=== PATIENT | male | born 1940 | race Caucasian/White ===

== ENCOUNTER 2020-09-29 14:24 | Emergency (ER) | payer OTHER, SELFPAY ==
[2020-09-29] VITALS (51 sets, daily range): BP systolic 149–195; BP diastolic 69–113; PULSE 57–85; RESP 12–24; TEMP 36.7; O2SAT 92–100
--- NOTE | 2020-09-29 14:15 | RT.EKG_ITS ---
APPROVED REPORT Exam: Resting ECG Reason for Exam: dizziness, high b/p Patient Location: E HR:74 bpm ECG Measurements Heart Rate 74 AXIS SD 176 P 46 QRSd 99 QRS 38 QT 387 T 43 QTc 432 Conclusion Sinus rhythm...normal P axis, V-rate 60- 99. No STEMI. I have reviewed and interpreted ECG and agree with software generated interpretation.
--- NOTE | 2020-09-29 14:31 | W.ED.GENAD ---
Discharge Plan Disposition Patient Disposition: HOME Condition: Improving Discharge Details Clinical Impression: Dizziness, Hypertension Primary Care Provider: Yosef Ramirez ED Provider: Arabella Riojas Home Meds and New Rx's Prescriptions: New amlodipine 5 mg tablet 5 mg PO DAILY Qty: 30 RF: 0 Continued atorvastatin 40 MG tablet 40 mg PO DAILY RF: 0 nitroglycerin [Nitrostat] 0.4 MG tablet, sublingual 0.4 mg Sublingual PRN RF: 0 aspirin [Aspirin Low-Strength] 81 MG tablet,chewable 81 mg PO DAILY RF: 0 Discontinued metoprolol succinate 50 MG tablet extended release 24 hr 50 mg PO DAILY RF: 0 metoprolol succinate 100 MG tablet extended release 24 hr 100 mg PO DAILY RF: 0 Discharge Instructions Instructions: Hypertension (ED), Dizziness (ED) Additional Instructions: Start taking the amlodipine as directed. Drink plenty of fluids and get plenty of rest. Check your blood pressure regularly. Call your primary care doctor tomorrow to schedule a follow-up appointment for reevaluation and for continued blood pressure management. Return immediately to the emergency department if you develop any worsening or new concerning symptoms. Discharge Data Discharge Physician: Arabella Riojas Medical Decision Making 80-year-old male with a history of hypertension, coronary artery disease, hypercholesterolemia, CABG presents with lightheadedness that started upon standing earlier this morning and has been intermittent since then. He denies chest pain. EKG notes a rate of 74, sinus, no STEMI, nondiagnostic. Blood pressure on arrival 166/106. Patient appears comfortable and on top. No focal deficits on exam. History and presentation does not appear consistent with acute CVA, subarachnoid hemorrhage, ACS. Considering patient's age and history, will obtain screening labs, CTA head and neck, chest x-ray. Will give 1 dose of amlodipine p.o. and IV fluids and reassess. Labs and imaging reviewed and unremarkable. Normal white blood cell count. Troponin negative. CTA head and neck and chest x-ray negative. Patient reassessed and he complained of some dizziness. Will give additional fluids with something to eat and reassess. Patient reassessed and he feels much better and is requesting to go home. Blood pressure continued to fluctuate at times but has been as low as 149/83. A prescription for amlodipine was sent electronically to his pharmacy. He is advised to call his primary care doctor tomorrow for follow-up and continued blood pressure management. Usual and customary return precautions given prior to discharge. Medical Records Medical records reviewed: Yes I reviewed the patient's medical records. Imaging Data Radiologic Study: Radiologist's impression: CT Angiography Head With Contrast, Arteriography Exam date and time: 09/29/2020 3:30 PM Age: 80 years old Clinical indication: Other: Headache, dizziness, high BP, R/O acute CVA, mass TECHNIQUE: Imaging protocol: Computed tomography angiography of the head with contrast. Exam focused on the arteries. 3D rendering (Not supervised by radiologist): MIP and/or 3D reconstructed images were created by the technologist. Radiation optimization: All CT scans at this facility use at least one of these dose optimization techniques: automated exposure control; mA and/or kV adjustment per patient size (includes targeted exams where dose is matched to clinical indication); or iterative reconstruction. Contrast material: OMNIPAQUE 350; Contrast volume: 85 ml; Contrast route: INTRAVENOUS (IV); COMPARISON: No relevant prior studies available. FINDINGS: ANTERIOR CIRCULATION: Right internal carotid artery: Intracranial atherosclerosis at the right carotid siphon. No significant stenosis or occlusion. Right middle cerebral artery: No flow-limiting stenosis or occlusion. 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 Otherwise, no flow-limiting stenosis or occlusion. Left internal carotid artery: Intracranial atherosclerosis at the left carotid siphon. No significant stenosis or occlusion. Left middle cerebral artery: No flow-limiting stenosis or occlusion. Left anterior cerebral artery: No flow-limiting stenosis or occlusion. POSTERIOR CIRCULATION: Right vertebral artery: Right dominant vertebral artery. No flow-limiting stenosis or occlusion. Left vertebral artery: No flow-limiting stenosis or occlusion. Basilar artery: No flow-limiting stenosis or occlusion. Right posterior cerebral artery: No flow-limiting stenosis or occlusion. Left posterior cerebral artery: No flow-limiting stenosis or occlusion. Brain: No acute large territorial infarction or intracranial hemorrhage. Mild parenchymal volume loss and nonspecific white matter hypodensity, likely chronic microangiopathy. No mass effect or midline shift. Intracranial atherosclerosis. Cerebral ventricles: No hydrocephalus. Bones/joints: No acute fracture. Soft tissues: Unremarkable. Dental: Partial bilateral maxillary sinus mucosal opacification with periapical lucency of the bilateral maxillary molars. IMPRESSION: No acute intracranial abnormality. Patency of the major proximal intracranial vessels. Intracranial arteriosclerosis. CT Angiography Neck With Contrast Exam date and time: 09/29/2020 3:30 PM Age: 80 years old Clinical indication: Other: Headache, dizziness, high BP, R/O acute CVA, mass TECHNIQUE: Imaging protocol: Computed tomography angiography of the neck with contrast. 3D rendering (Not supervised by radiologist): MIP and/or 3D reconstructed images were created by the technologist. Radiation optimization: All CT scans at this facility use at least one of these dose optimization techniques: automated exposure control; mA and/or kV adjustment per patient size (includes targeted exams where dose is matched to clinical indication); or iterative reconstruction. Contrast material: OMNIPAQUE 350; Contrast volume: 85 ml; Contrast route: INTRAVENOUS (IV); COMPARISON: No relevant prior studies available. FINDINGS: Right common carotid artery: No stenosis. No dissection or occlusion. Right internal carotid artery: Atherosclerotic disease, without significant proximal right internal carotid artery stenosis by NASCET criteria. Right external carotid artery: No occlusion or stenosis of the origin. Left common carotid artery: The left common carotid artery incidentally arises from the right brachiocephalic artery. No flow-limiting stenosis or occlusion. Left internal carotid artery: Atherosclerotic disease, without significant proximal left internal carotid artery stenosis by NASCET criteria. Left external carotid artery: No occlusion or stenosis of the origin. Right vertebral artery: No stenosis. No dissection or occlusion. Left vertebral artery: No stenosis. No dissection or occlusion. Aorta: Noncalcified plaque at the aortic arch and origin of the right brachiocephalic artery. Thyroid: Incidental hypodense left thyroid nodule measuring to 9 mm. No additional follow-up is recommended per imaging guidelines. Soft tissues: No significant soft tissue swelling. Bones/joints: Median sternotomy wires. Degenerative changes of the thoracic spine. No acute osseous abnormality. 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 Lungs: Biapical pleuroparenchymal scarring. IMPRESSION: Atherosclerotic disease. No flow-limiting stenosis or occlusion. Lab Data Lab results reviewed: Yes I reviewed the patient's lab results. Labs: Laboratory Tests Range/Units 09/29/20 09/29/20 14:58 14:58 WBC (4.4-10.8) 10^3/uL 8.66 RBC (4.36-5.78) 10^6/uL 5.02 Hgb (13.5-17.5) g/dL 15.5 Hct (40.0-50.0) % 47.8 MCV (80-95) fL 95.2 H MCH (27.0-33.0) pg 30.9 MCHC (32.0-36.0) % 32.4 RDW (11.8-14.1) % 12.7 Plt Count (130-400) 10^3/uL 194 MPV (8.0-11.0) fL 9.6 Immature Gran % 0.2 Neutrophils % 54.6 Lymphocytes % 30.4 Monocytes % 12.4 Eosinophils % 1.8 Basophils % 0.6 Nucleated RBC % % 0 Absolute Neutrophils (1.2-6.7) 10^3/uL 4.73 Absolute Lymphocytes (1.2-3.4) 10^3/uL 2.63 Absolute Monocytes (0.1-0.8) 10^3/uL 1.07 H Absolute Eosinophils (0.0-0.7) 10^3/uL 0.16 Absolute Basophils (0.0-0.2) 10^3/uL 0.05 Sodium (136-145) mmol/L 143 Potassium (3.5-5.1) mmol/L 4.1 Chloride (98-107) mmol/L 108 H Carbon Dioxide (21.0-32.0) mmol/L 26.2 Anion Gap (3-11) mmol/L 8.8 BUN (7-18) mg/dL 19 H Creatinine (0.70-1.30) mg/dL 1.3 Estimated GFR/1.73 m2 (mL/min/1.73m2) 53.39 Glucose (74-106) mg/dL 110 H Calcium (8.5-10.1) mg/dL 8.9 Magnesium (1.8-2.4) mg/dL 2.2 Total Bilirubin (0.2-1.0) mg/dL 0.4 AST (15-37) U/L 15 ALT (16-63) U/L 28 Alkaline Phosphatase (46-116) U/L 108 Troponin I (<0.06) ng/mL < 0.05 Total Protein (6.4-8.2) g/dL 7.9 Albumin (3.4-5.0) g/dL 3.4 ECG Data Attestation: I personally reviewed and interpreted this ECG (s) as follows: Interpretation: Rate of 74, sinus, no acute ST elevation or depression. AR 176. QTc 432. HPI General Mode of arrival: ambulatory. Date/Time Provider Initiated Documentation: 09/29/20 14:26. Limitations to Documentation: no limitations. Information obtained by: patient. HPI Narrative: Patient is a 80-year-old male who presents with a complaint of dizziness since 3 AM this morning. Patient states he awoke to use the bathroom in the middle of the night and felt a lightheadedness sensation. He states he has felt intermittent dizziness since then. He denies any spinning sensation. He states he checked his blood pressure at home and it was 193/109 at its highest today. He also admits to a mild diffuse headache earlier today but denies any at present. He denies any blurry vision, chest pain, shortness breath, abdominal pain, nausea, vomiting, diarrhea or urinary symptoms. Patient states he made the decision to stop all of his blood pressure medications 1 month ago. He states he had discussed it with his primary care doctor Dr. Ramirez as he felt that most of his medications caused side effects and he decided he would rather change his diet and exercise. Patient states he had a reaction of mood change and dizziness with clonidine, a cough with lisinopril and a headache with hydrochlorothiazide. He states he did not have any side effect with metoprolol but states he was on 200 mg daily without any response in his blood pressure. Related Data Home Medications Medication Instructions Recorded Confirmed aspirin [Aspirin Low-Strength] 81 mg PO DAILY tab-cap 06/21/12 05/03/16 atorvastatin 40 mg PO DAILY tab-cap 06/21/12 05/03/16 nitroglycerin [Nitrostat] 0.4 mg SUBLINGUAL PRN 06/21/12 09/29/20 amlodipine 5 mg PO DAILY #30 tab 09/29/20 Previous Rx's Medication Instructions Recorded amlodipine 5 mg PO DAILY #30 tab 09/29/20 Allergies Allergy/AdvReac Type Severity Reaction Status Date / Time hydrochlorothiazide AdvReac Mild Headache Unverified 09/29/20 14:42 lisinopril [From Prinivil] AdvReac Mild COUGH Unverified 05/03/16 07:38 clonidine AdvReac Dizziness/L Unverified 09/29/20 14:42 ighthead Review of Systems All systems reviewed & are unremarkable except as noted in HPI and below Constitutional Constitutional: Reports as per HPI, Denies chills and Denies fever(s) Eyes Eyes: Denies blurry vision ENT Ears, Nose, Mouth, and Throat: Reports dizziness, Denies sore throat and Denies throat swelling Cardiovascular Cardiovascular: Denies chest pain and Denies dyspnea Respiratory Respiratory: Denies cough and Denies dyspnea Gastrointestinal Gastrointestinal: Denies abdominal pain, Denies diarrhea and Denies vomiting Genitourinary Genitourinary: Denies hematuria and Denies dysuria Musculoskeletal Musculoskeletal: Denies back pain and Denies numbness Integumentary/Breasts Skin/Breast: Denies lesions and Denies rash Neurologic Neurologic: Reports dizziness, Denies localized weakness and Denies numbness Allergic/Immunologic Allergic/Immunologic: Denies throat swelling [facility] Medical History (Updated 09/29/20 @ 18:25 by Arabella Riojas DO) CAD Diverticulitis (~2005) Essential hypertension Hypercholesterolemia Retinal detachment (~1977) TUBULAR ADENOMA (~2007) Surgical History (Updated 01/10/18 @ 14:33 by [employer] [place]) Angioplasty Colonoscopy - IV Sedation (10/22/07) Colonoscopy - IV Sedation (05/03/16) Coronary Artery Bypass Gaft (CABG) (01/25/01) EXCISION, ANAL PAPILLA (03/27/05) Extraction of cataract (~2005) Tonsillectomy (~194) Trigger Finger release (~2011) Family History Mother No problems noted. Father Heart disease Carcinoma of prostate Sister Hypercholesterolemia Sister No problems noted. Sister No problems noted. Brother Hypercholesterolemia Social History Smoking/Tobacco Use Status: Former Tobacco Use Smoking risk assessment performed?: Yes Alcohol Intake: current Alcohol Intake frequency: a few times a month Drug use: Never Do you feel safe at home: Yes Do you feel safe in your relationship?: Yes Exam Const General: cooperative and no acute distress [facility] Head: normal to inspection Face and sinus: normal facial exam Eyes General: appearance normal, both eyes and all related structures Pupils: PERRL EOM: EOM intact bilaterally Neck Neck: normal visual inspection and No submandibular swelling Lymphatic: no lymphadenopathy noted Chest Chest: normal inspection of the chest and no tenderness Resp Effort & Inspection: normal respiratory effort and able to speak in complete sentences Auscultation: clear to auscultation bilaterally Cardio Rate: regular rate Rhythm: regular rhythm GI Inspection: normal to inspection Palpation: soft, not firm, not rigid and nontender Auscultation: normal bowel sounds Skin General skin exam: no rashes or lesions noted Neuro General: patient alert, patient awake, patient oriented x3, gait normal, moves all extremities, no meningeal signs and no focal motor deficits Cranial Nerves: CN's II-XI intact bilaterally Cognition: normal cognition Speech: speech normal Motor: muscle tone normal throughout and strength 5/5 throughout Sensory Exam: no sensory deficits noted Extrem General: normal to inspection, full ROM, capillary refill normal, no calf tenderness bilaterally and no edema Psych Appearance: grossly normal Mental Status: mental status grossly normal Speech and Movement: speech and movement normal Affect: normal affect
[2020-09-29 15:09] LABS: Abs Immature Grans 0.02 10^3/uL (0.0-0.06); Absolute Basophil Count 0.05 10^3/uL (0.0-0.2); Absolute Eosinophil Count 0.16 10^3/uL (0.0-0.7); Absolute Lymphocyte Count 2.63 10^3/uL (1.2-3.4); Absolute Monocyte Count 1.07 10^3/uL (0.1-0.8); Absolute Neutrophil Count 4.73 10^3/uL (1.2-6.7); Basophils % 0.6; Eosinophils % 1.8; HCT 47.8 % (40.0-50.0); HGB 15.5 g/dL (13.5-17.5); Immature Grans % 0.2; Lymphocytes % 30.4; MCH 30.9 pg (27.0-33.0); MCHC 32.4 % (32.0-36.0); MCV 95.2 fL (80-95); MPV 9.6 fL (8.0-11.0); Monocytes % 12.4; Neutrophils % 54.6; Nucleated RBC 0 %; Platelet Count 194 10^3/uL (130-400); RBC 5.02 10^6/uL (4.36-5.78); RDW 12.7 % (11.8-14.1); RDW-SD 44.8 fL; WBC 8.66 10^3/uL (4.4-10.8)
--- NOTE | 2020-09-29 15:15 | DI.CT_ITS ---
Exam(s) CT BRAIN NECK CTA EXAM: CT BRAIN NECK CTA CLINICAL HISTORY: headache,dizziness, high bp. TECHNIQUE: Imaging Protocol: Axial CT angiography was performed with multi-slice acquisition and mu lti-planar and/or 3D reconstructions. CONTRAST MATERIAL: Intravenous: Omnipaque 350 Contrast volume:structured data in ml COMPARISON: No exams were available for comparison FINDINGS: CT Head W/O and W: Ventricles and Extra axial spaces: Normal in size and morphology for the patient's age. Hemorrhage: None. Cerebral parenchyma: No acute territorial infarct. There are areas of decreased attenuation in the w dusty matter most consistent with chronic microvascular ischemic disease. Midline shift: None. Brainstem/Cerebellum: Normal. Calvarium: Normal. Visualized Paranasal sinuses/Mastoids: Clear except for mild mucosal thickening in the maxillary sinu ses bilaterally and a mucous retention cyst or polyp in the right maxillary sinus. Soft Tissues: Unremarkable. Enhancement: Unremarkable. CTA Neck W: Common Carotid: Right: No dissection, occlusion or significant stenosis. Left: No dissection, occlusion or significant stenosis. Appears to arise from the right brachiocepha lic artery. External Carotid: Right: No occlusion or significant stenosis. Left: No occlusion or significant stenosis. Internal Carotid: Right: No dissection, occlusion or significant stenosis. Left: No dissection, occlusion or significant stenosis. Vertebral Artery: Right: No dissection, occlusion or significant stenosis. Left: No dissection, occlusion or significant stenosis. Lung Apices: Normal. Bones: Normal. Median sternotomy wires. Soft Tissues: Normal. Thyroid gland: The less than 1 cm hypodense nodule in the left lobe of the thyroid gland. No follow- up is recommended. CTA Brain W: Internal Carotid Arteries: Petrous: Normal. Cavernous: Normal. Mild atherosclerosis. No significant stenosis or evidence of occlusion. Cerebral: Normal. Anterior Cerebral Arteries: Right: No aneurysm, occlusion or significant stenosis. Left: No aneurysm, occlusion or significant stenosis. Middle Cerebral Arteries: Right: No aneurysm, occlusion or significant stenosis. Left: No aneurysm, occlusion or significant stenosis. Posterior cerebral Arteries: Right: No aneurysm, occlusion or significant stenosis. Left: No aneurysm, occlusion or significant stenosis. Vertebral Arteries: Right: No aneurysm, occlusion or significant stenosis. Left: No aneurysm, occlusion or significant stenosis. Basilar Artery: No aneurysm, occlusion or significant stenosis. IMPRESSION: 1. Atherosclerosis in the [id number]. No evidence of occlusion or significant stenosis. 2. Unremarkable noncontrast CT Head. 3. Evidence of occlusion or significant stenosis on the CT angiography of the neck. RADIATION DOSE DELIVERED: 2,066.2mGy.cm Total DLP DATA REPOSITORY: All CT scans at this facility are submitted to the National Radiology Data Registry (NRDR) Dose Index Registry (DIR) with the [employer] ([employer]). RADIATION OPTIMIZATION: All CT scans at this facility use at least one of these dose optimization te chniques: automated exposure control; mA and/or kV adjustment per patient size (includes targeted exa ms where dose is matched to clinical indication); or iterative reconstruction.
[2020-09-29 15:32] LABS: ALT 28 U/L (16-63); AST 15 U/L (15-37); Albumin 3.4 g/dL (3.4-5.0); Alkaline Phosphatase 108 U/L (46-116); Anion Gap 8.8 mmol/L (3-11); BUN 19 mg/dL (7-18); Bilirubin, Total 0.4 mg/dL (0.2-1.0); CO2 26.2 mmol/L (21.0-32.0); CREATININE 1.3 mg/dL (0.70-1.30); Calcium 8.9 mg/dL (8.5-10.1); Chloride 108 mmol/L (98-107); Estimated GFR 53.39 (mL/min/1.73m2); Glucose 110 mg/dL (74-106); Magnesium 2.2 mg/dL (1.8-2.4); Potassium 4.1 mmol/L (3.5-5.1); Sodium 143 mmol/L (136-145); Total Protein 7.9 g/dL (6.4-8.2)
[2020-09-29] MEDS: amLODIPine 5 MG TAB PO (15:39)
[2020-09-29] MEDS: ACETAMINOPHEN 1,000 MG/100 ML BTL 400 MG IVPB (15:39)
[2020-09-29] MEDS: Normal Saline 500 ML IV (15:39)
[2020-09-29 16:05] LABS: Troponin I < 0.05 ng/mL (<0.06)
--- NOTE | 2020-09-29 16:20 | DI.RAD_ITS ---
Exam(s) XR CHEST 2V PA LATERAL EXAM: XR CHEST 2V PA LATERAL CLINICAL HISTORY: dizziness, r/o acute disease TECHNIQUE: 2D digital imaging was performed. COMPARISON: No exams were available for comparison FINDINGS: MEDIASTINUM: Normal. HEART: Normal. PULMONARY VASCULATURE: Normal. LUNGS: Clear. PLEURAL SPACE: No pleural effusion or pneumothorax. BONE:Within normal limits for the patient's age. Sternal wires are in place. OTHER FINDINGS:Normal. IMPRESSION: No acute pulmonary findings. DATA REPOSITORY: RADIATION DOSE DELIVERED:
[2020-09-29] MEDS: Omnipaque 350 MG/ML 100 ML BTL IV (16:22)
--- NOTE | 2020-09-29 16:35 | DI.VRAD_ITS ---
PROCEDURE INFORMATION: Exam: XR Chest Exam date and time: 09/29/2020 3:30 PM Age: 80 years old Clinical indication: Other: Dizziness TECHNIQUE: Imaging protocol: XR of the chest. Views: 2 views. COMPARISON: No relevant prior studies available. FINDINGS: Lungs: No mass. No consolidation. Pleural spaces: Unremarkable. No pleural effusion. No pneumothorax. Heart/Mediastinum: Unremarkable cardiomediastinal silhouette. No cardiomegaly. Bones/joints: There has been median sternotomy. IMPRESSION: No evidence for acute cardiopulmonary disease. Dictated and Authenticated by: Yosef Coffman MD. Ordering:MARIA ESTHER Bell MD
[2020-09-29] MEDS: Normal Saline - Diluent 50 ML VIAL IV (16:40)
--- NOTE | 2020-09-29 17:00 | NUR.NOTE ---
Nursing Note: Donna [phone]
--- NOTE | 2020-09-29 17:23 | DI.VRAD_ITS ---
PROCEDURE INFORMATION: Exam: CT Angiography Head With Contrast, Arteriography Exam date and time: 09/29/2020 3:30 PM Age: 80 years old Clinical indication: Other: Headache, dizziness, high BP, R/O acute CVA, mass TECHNIQUE: Imaging protocol: Computed tomography angiography of the head with contrast. Exam focused on the arteries. 3D rendering (Not supervised by radiologist): MIP and/or 3D reconstructed images were created by the technologist. Radiation optimization: All CT scans at this facility use at least one of these dose optimization techniques: automated exposure control; mA and/or kV adjustment per patient size (includes targeted exams where dose is matched to clinical indication); or iterative reconstruction. Contrast material: OMNIPAQUE 350; Contrast volume: 85 ml; Contrast route: INTRAVENOUS (IV); COMPARISON: No relevant prior studies available. FINDINGS: ANTERIOR CIRCULATION: Right internal carotid artery: Intracranial atherosclerosis at the right carotid siphon. No significant stenosis or occlusion. Right middle cerebral artery: No flow-limiting stenosis or occlusion. 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 Otherwise, no flow-limiting stenosis or occlusion. Left internal carotid artery: Intracranial atherosclerosis at the left carotid siphon. No significant stenosis or occlusion. Left middle cerebral artery: No flow-limiting stenosis or occlusion. Left anterior cerebral artery: No flow-limiting stenosis or occlusion. POSTERIOR CIRCULATION: Right vertebral artery: Right dominant vertebral artery. No flow-limiting stenosis or occlusion. Left vertebral artery: No flow-limiting stenosis or occlusion. Basilar artery: No flow-limiting stenosis or occlusion. Right posterior cerebral artery: No flow-limiting stenosis or occlusion. Left posterior cerebral artery: No flow-limiting stenosis or occlusion. Brain: No acute large territorial infarction or intracranial hemorrhage. Mild parenchymal volume loss and nonspecific white matter hypodensity, likely chronic microangiopathy. No mass effect or midline shift. Intracranial atherosclerosis. Cerebral ventricles: No hydrocephalus. Bones/joints: No acute fracture. Soft tissues: Unremarkable. Dental: Partial bilateral maxillary sinus mucosal opacification with periapical lucency of the bilateral maxillary molars. IMPRESSION: No acute intracranial abnormality. Patency of the major proximal intracranial vessels. Intracranial arteriosclerosis. PROCEDURE INFORMATION: Exam: CT Angiography Neck With Contrast Exam date and time: 09/29/2020 3:30 PM Age: 80 years old Clinical indication: Other: Headache, dizziness, high BP, R/O acute CVA, mass TECHNIQUE: Imaging protocol: Computed tomography angiography of the neck with contrast. 3D rendering (Not supervised by radiologist): MIP and/or 3D reconstructed images were created by the technologist. Radiation optimization: All CT scans at this facility use at least one of these dose optimization techniques: automated exposure control; mA and/or kV adjustment per patient size (includes targeted exams where dose is matched to clinical indication); or iterative reconstruction. Contrast material: OMNIPAQUE 350; Contrast volume: 85 ml; Contrast route: INTRAVENOUS (IV); COMPARISON: No relevant prior studies available. FINDINGS: Right common carotid artery: No stenosis. No dissection or occlusion. Right internal carotid artery: Atherosclerotic disease, without significant proximal right internal carotid artery stenosis by NASCET criteria. Right external carotid artery: No occlusion or stenosis of the origin. Left common carotid artery: The left common carotid artery incidentally arises from the right brachiocephalic artery. No flow-limiting stenosis or occlusion. Left internal carotid artery: Atherosclerotic disease, without significant proximal left internal carotid artery stenosis by NASCET criteria. Left external carotid artery: No occlusion or stenosis of the origin. Right vertebral artery: No stenosis. No dissection or occlusion. Left vertebral artery: No stenosis. No dissection or occlusion. Aorta: Noncalcified plaque at the aortic arch and origin of the right brachiocephalic artery. Thyroid: Incidental hypodense left thyroid nodule measuring to 9 mm. No additional follow-up is recommended per imaging guidelines. Soft tissues: No significant soft tissue swelling. Bones/joints: Median sternotomy wires. Degenerative changes of the thoracic spine. No acute osseous abnormality. 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 Lungs: Biapical pleuroparenchymal scarring. IMPRESSION: Atherosclerotic disease. No flow-limiting stenosis or occlusion. REFERENCES: NASCET CRITERIA. The degree of internal carotid artery stenosis is based on NASCET criteria. Normal is no stenosis. Mild is less than 50% stenosis. Moderate is 50-69% stenosis. Severe is 70% to 99% stenosis. Total occlusion is no detectable patent lumen. Dictated and Authenticated by: Marycarmen Umanzor MD. Ordering:MARIA ESTHER Bell MD
[2020-09-29] MEDS: Normal Saline 250 ML IV (17:29)
== END 2020-09-29 18:49 | disposition home or self-care (01) ==
PROVIDERS: Emergency Provider Physician Assistant; PCP Family Medicine
DX: R42 Dizziness and giddiness (principal); I10 Essential (primary) hypertension
CPT/HCPCS: 36415; 70496; 70498; 80053; 93005; 96361; 96365; 99285; 71046; 83735; 84484; 85025; 93010; J0131; J3490

== ENCOUNTER 2022-07-07 10:07 | Emergency (ER) | payer OTHER, SELFPAY ==
[2022-07-07 10:13] VITALS: BP 153/90; PULSE 84; RESP 17; TEMP 36.8; O2SAT 98
--- NOTE | 2022-07-07 10:15 | RT.EKG_ITS ---
APPROVED REPORT Exam: Resting ECG Reason for Exam: dizziness Patient Location: E HR:84 bpm ECG Measurements Heart Rate [address] 181 P 50 QRSd 87 QRS 44 QT 362 T 16 QTc 428 Conclusion Sinus rhythm...normal P axis, V-rate 60- 99 Probable left atrial enlargement...P >50mS, <-0.10mV V1 Anteroseptal infarct, age indeterminate...Q >35mS, T neg, V1-V2. Sinus. Normal axis. No STEMI. I have reviewed and interpreted ECG and agree with software generated interpretation.
--- NOTE | 2022-07-07 10:45 | DI.CT_ITS ---
Exam(s) CT BRAIN NECK CTA EXAM: CT BRAIN NECK CTA CLINICAL HISTORY: Dizziness. TECHNIQUE: Imaging Protocol: Axial CT angiography was performed with multi-slice acquisition and mu lti-planar and 3D reconstructions. CONTRAST MATERIAL: Intravenous: Omnipaque 350 Contrast volume:85 mL COMPARISON: CT CT BRAIN NECK CTA from 09/29/2020 FINDINGS: CT Head W/O and W contrast: Ventricles and Extra axial spaces: Normal in size and morphology for the patient's age. Hemorrhage: None. Cerebral parenchyma: Mild atrophy. Mild white matter changes of microvascular disease. Midline shift: None. Brainstem/Cerebellum: Normal. Calvarium: Normal. Visualized Paranasal sinuses/Mastoids: Mucous retention at the floors of the maxillary sinuses. Soft Tissues: Unremarkable. Enhancement: Normal. CTA Brain W: Internal Carotid Arteries: Petrous: Normal. Cavernous: Calcification. No significant stenosis. Cerebral: Normal. Middle Cerebral Arteries: Right: No aneurysm, occlusion or significant stenosis. Left: No aneurysm, occlusion or significant stenosis. Anterior Cerebral Arteries: Right: No aneurysm, occlusion or significant stenosis. Left: No aneurysm, occlusion or significant stenosis. Posterior cerebral Arteries: Right: No aneurysm, occlusion or significant stenosis. Left: No aneurysm, occlusion or significant stenosis. Vertebral Arteries: Right: Calcification distally. No aneurysm, occlusion or significant stenosis. Left: No aneurysm, occlusion or significant stenosis. Basilar Artery: No aneurysm, occlusion or significant stenosis. CTA Neck W: Common Carotid: Right: No significant plaque. Tortuous proximally. No dissection, occlusion or significant stenosis . Left: No significant plaque. No dissection, occlusion or significant stenosis. External Carotid: Right: No dissection, occlusion or significant stenosis. Left: No dissection, occlusion or significant stenosis. Internal Carotid: Right: No visible plaque. No dissection, or significant stenosis. Left: No visible plaque. No dissection, occlusion or significant stenosis. Vertebral Artery: Right: No dissection, occlusion or significant stenosis. Left: No dissection, occlusion or significant stenosis. Lung Apices: Normal. Bones: No acute abnormality. Soft Tissues: Bony excrescence seen off the inner left side of the anterior mandible at the level of the floor of the mouth chest and and a benign appearance and may represent an osteoma or osteo chondr hayder. IMPRESSION: 1. Mild vascular calcification in the [place]. Evidence of significant stenosis. 2. Unremarkable CT Head. 3. Normal CTA examination of the neck. RADIATION DOSE DELIVERED: 2,382.45mGy.cm Total DLP DATA REPOSITORY: All CT scans at this facility are submitted to the National Radiology Data Registry (NRDR) Dose Index Registry (DIR) with the [employer] (ACR). RADIATION OPTIMIZATION: All CT scans at this facility use at least one of these dose optimization te chniques: automated exposure control; mA and/or kV adjustment per patient size (includes targeted exa ms where dose is matched to clinical indication); or iterative reconstruction.
--- NOTE | 2022-07-07 10:47 | W.ED.GENAD ---
Discharge Plan Disposition Patient Disposition: Home Discharge Details Clinical Impression: Dizziness, Dehydration Primary Care Provider: Yosef Ramirez ED Provider: Josie Green Home Meds and New Rx's Prescriptions: New meclizine 12.5 mg tablet 12.5 mg PO TID PRN (Reason: dizziness) Qty: 14 0RF Rx Instructions: Take 1 tablet up to 3 times daily as needed for dizziness Continued atorvastatin 40 MG tablet 40 mg PO DAILY nitroglycerin [Nitrostat] 0.4 MG tablet, sublingual 0.4 mg Sublingual PRN Patient Comments: Pt has never used. aspirin [Aspirin Low-Strength] 81 MG tablet,chewable 81 mg PO DAILY amlodipine 5 mg tablet 5 mg PO DAILY Qty: 30 0RF Rx Instructions: Take 5 mg on even days and 1/2 tab on odd days per PCP Discharge Instructions Instructions: Dehydration (ED), Dizziness (ED) Additional Instructions: Take the lithium as directed. At this time the CT shows no bleeding in the brain, narrowing of your vessels or any conditions to explain your symptoms. Cardiac work-up also within normal limits. You do appear to be a little bit dehydrated your kidney functions are slightly elevated today. Follow up with primary care provider in 3-5 days. Return to ED sooner if any worsening dizziness headache nausea vomiting, fever or concerns. Increase oral fluids. Referrals: Yosef Ramirez [Primary Care Provider] - 3 days Medical Decision Making 82-year-old male presents to the ER with chief complaint of dizziness which has been ongoing for the last 2 days reports nausea vomiting on Monday night and feeling unsteady on his feet with dizziness. He reports that it resolves with laying down or sitting down. He states that he is having hard time reading. Denies any headache or neck pain. He is alert and oriented x4, no focal neurodeficits noted. Denies any weakness numbness or tingling. No facial droop. Does have a past medical history of coronary artery disease, hypertension hypercholesterolemia diverticulitis he has had coronary artery bypass graft in 2000. Work-up ordered including CBC CMP, troponin x2, EKG was performed which shows no significant change from previous. Old EKG available from review, see Dr. Rioajs's official report. Will give meclizine here and Zofran and order CT head. Differential diagnosis includes but not limited to CVA, sinusitis, vertigo, CAD, [place] CBC shows slight leukocytosis 11.07, sodium potassium within normal limits, BUN 22 creatinine 1.5 GFR is 46 glucose 136, urinalysis shows 30 protein no evidence of urinary tract infection no nitrites no leukocytes. Troponin less than 50. CT within normal limits. I will reevaluate. 1240: Patient reevaluation, he reports that he feels somewhat drowsy. He did notice a little bit of swirling in his head when he stood up to use the urinal. Has remained chest pain-free no shortness of breath no other associated symptoms. I did discuss his CT with him and his lab results. He reports that he has had decreased p.o. oral fluid intake last couple of days this may contribute to his elevated BUN/creatinine due to dehydration. He is getting a 500 cc normal saline bolus and I instructed him on increasing fluids. I also discussed strict return instructions and follow-up with PCP, he verbalized understanding feels well enough to be discharged home at this time. This text was generated using [employer] system, please disregard any oddities of phrase or misspellings. Medical Records Medical records reviewed: Yes I reviewed the patient's medical records. Imaging Data Radiologic Study: Imaging: CT Scan Radiologist's impression: IMPRESSION: 1. Mild vascular calcification in the [place]. Evidence of significant stenosis. 2. Unremarkable CT Head. 3. Normal CTA examination of the neck. Lab Data Lab results reviewed: Yes I reviewed the patient's lab results. Labs: Laboratory Tests Range/Units 07/07/22 07/07/22 07/07/22 11:04 11:04 11:26 WBC (4.4-10.8) 10^3/uL 11.07 H RBC (4.36-5.78) 10^6/uL 5.23 Hgb (13.5-17.5) g/dL 15.9 Hct (40.0-50.0) % 48.5 MCV (80-95) fL 93 MCH (27.0-33.0) pg 30.4 MCHC (32.0-36.0) % 32.8 RDW (11.8-14.1) % 12.9 Plt Count (130-400) 10^3/uL 233 MPV (8.0-11.0) fL 9.5 Immature Gran % 0.4 Neutrophils % 63.7 Lymphocytes % 26.9 Monocytes % 7.5 Eosinophils % 1.0 Basophils % 0.5 Nucleated RBC % (0.0-0.3) % 0.0 Absolute Neutrophils (1.2-6.7) 10^3/uL 7.05 H Absolute Lymphocytes (1.2-3.4) 10^3/uL 2.98 Absolute Monocytes (0.1-0.8) 10^3/uL 0.83 H Absolute Eosinophils (0.0-0.7) 10^3/uL 0.11 Absolute Basophils (0.0-0.2) 10^3/uL 0.06 Sodium (136-145) mmol/L 144 Potassium (3.5-5.1) mmol/L 4.2 Chloride (98-107) mmol/L 108 H Carbon Dioxide (21.0-32.0) mmol/L 28.4 Anion Gap (3-11) mmol/L 7.6 BUN (7-18) mg/dL 22 H Creatinine (0.70-1.30) mg/dL 1.5 H Est GFR (CKD-EPI 2020) (mL/min/1.73m2) 46.77 Glucose (74-106) mg/dL 136 H Calcium (8.5-10.1) mg/dL 9.6 Magnesium (1.8-2.4) mg/dL 2.2 Total Bilirubin (0.2-1.0) mg/dL 0.6 AST (15-37) U/L 18 ALT (16-63) U/L 33 Alkaline Phosphatase (46-116) U/L 137 H Troponin I (<or=60) ng/L < 50 Total Protein (6.4-8.2) g/dL 8.5 H Albumin (3.4-5.0) g/dL 3.6 Urine Color (Yellow) Yellow Urine Clarity (Clear) Clear Urine pH (5-8) 5.5 Ur Specific [place] (1.005-1.025) >= 1.030 H Urine Protein (Negative) mg/dL 30 H Urine Ketones (Negative) mg/dL Negative Urine Blood (Negative) Negative Urine Nitrite (Negative) Negative Urine Bilirubin (Negative) Negative Urine Urobilinogen (Up to 0.2) mg/dL 0.2 Ur Leukocyte Esterase (Negative) Negative Urine RBC (0-2) HPF Negative Urine WBC (0-5) HPF 0-2 Ur Epithelial Cells (Negative) HPF Negative Urine Crystals (Negative) HPF Negative Urine Bacteria (Negative) HPF Rare Urine Casts (Negative) LPF Negative Urine Mucus (Negative) Trace Urine Other (Negative) Negative Ur Culture Indicated? No Urine Glucose (Negative) mg/dL Negative Range/Units 07/07/22 13:29 WBC (4.4-10.8) 10^3/uL RBC (4.36-5.78) 10^6/uL Hgb (13.5-17.5) g/dL Hct (40.0-50.0) % MCV (80-95) fL MCH (27.0-33.0) pg MCHC (32.0-36.0) % RDW (11.8-14.1) % Plt Count (130-400) 10^3/uL MPV (8.0-11.0) fL Immature Gran % Neutrophils % Lymphocytes % Monocytes % Eosinophils % Basophils % Nucleated RBC % (0.0-0.3) % Absolute Neutrophils (1.2-6.7) 10^3/uL Absolute Lymphocytes (1.2-3.4) 10^3/uL Absolute Monocytes (0.1-0.8) 10^3/uL Absolute Eosinophils (0.0-0.7) 10^3/uL Absolute Basophils (0.0-0.2) 10^3/uL Sodium (136-145) mmol/L Potassium (3.5-5.1) mmol/L Chloride (98-107) mmol/L Carbon Dioxide (21.0-32.0) mmol/L Anion Gap (3-11) mmol/L BUN (7-18) mg/dL Creatinine (0.70-1.30) mg/dL Est GFR (CKD-EPI 2020) (mL/min/1.73m2) Glucose (74-106) mg/dL Calcium (8.5-10.1) mg/dL Magnesium (1.8-2.4) mg/dL Total Bilirubin (0.2-1.0) mg/dL AST (15-37) U/L ALT (16-63) U/L Alkaline Phosphatase (46-116) U/L Troponin I (<or=60) ng/L Cancelled Total Protein (6.4-8.2) g/dL Albumin (3.4-5.0) g/dL Urine Color (Yellow) Urine Clarity (Clear) Urine pH (5-8) Ur Specific [place] (1.005-1.025) Urine Protein (Negative) mg/dL Urine Ketones (Negative) mg/dL Urine Blood (Negative) Urine Nitrite (Negative) Urine Bilirubin (Negative) Urine Urobilinogen (Up to 0.2) mg/dL Ur Leukocyte Esterase (Negative) Urine RBC (0-2) HPF Urine WBC (0-5) HPF Ur Epithelial Cells (Negative) HPF Urine Crystals (Negative) HPF Urine Bacteria (Negative) HPF Urine Casts (Negative) LPF Urine Mucus (Negative) Urine Other (Negative) Ur Culture Indicated? Urine Glucose (Negative) mg/dL HPI General Mode of arrival: ambulatory. Date/Time Provider Initiated Documentation: 07/07/22 10:27. Limitations to Documentation: no limitations. Information obtained by: patient, RN notes reviewed and old records reviewed. HPI Narrative: 82-year-old male presents to the ER with chief complaint of dizziness which has been ongoing for the last 2 days reports nausea vomiting on Monday night and feeling unsteady on his feet with dizziness. He reports that it resolves with laying down or sitting down. He states that he is having hard time reading. Denies any headache or neck pain. He is alert and oriented x4, no focal neurodeficits noted. Denies any weakness numbness or tingling. No facial droop. Does have a past medical history of coronary artery disease, hypertension hypercholesterolemia diverticulitis he has had coronary artery bypass graft in 2000. Related Data Home Medications Medication Instructions Recorded Confirmed aspirin 81 mg chewable tablet 81 mg PO DAILY 06/21/12 07/07/22 (Aspirin Low-Strength) atorvastatin 40 mg tablet 40 mg PO DAILY 06/21/12 07/07/22 nitroglycerin 0.4 mg sublingual 0.4 mg sublingual PRN 06/21/12 07/07/22 tablet (Nitrostat) amlodipine 5 mg tablet 5 mg PO DAILY #30 tabs 09/29/20 07/07/22 meclizine 12.5 mg tablet 12.5 mg PO TID PRN dizziness #14 07/07/22 tabs Previous Rx's Medication Instructions Recorded amlodipine 5 mg tablet 5 mg PO DAILY #30 tabs 09/29/20 meclizine 12.5 mg tablet 12.5 mg PO TID PRN dizziness #14 07/07/22 tabs Allergies Allergy/AdvReac Type Severity Reaction Status Date / Time hydrochlorothiazide AdvReac Mild Headache Unverified 07/07/22 11:11 lisinopril [From Prinivil] AdvReac Mild COUGH Unverified 07/07/22 11:11 clonidine AdvReac Dizziness/L Unverified 07/07/22 11:11 ighthead General Stated Complaint: Dizzy/Sync JOSE G: 3 Review of Systems All systems reviewed & are unremarkable except as noted in HPI and below ENT Ears, Nose, Mouth, and Throat: Reports dizziness and Reports disequilibrium Cardiovascular Cardiovascular: Denies chest pain, Denies dyspnea, Denies dyspnea on exertion and Denies paroxysmal nocturnal dyspnea Respiratory Respiratory: Denies dyspnea and Denies dyspnea on exertion Gastrointestinal Gastrointestinal: Reports nausea and Reports vomiting Neurologic Neurologic: Reports dizziness and Reports disequilibrium PFSH All Active Problems (Updated 07/07/22 @ 12:40 by Josie Green NP) Dizziness (Acute) Hypertension (Chronic) Dehydration (Acute) Medical History CAD Diverticulitis (~2005) Essential hypertension Hypercholesterolemia Retinal detachment (~1977) TUBULAR ADENOMA (~2007) Surgical History Angioplasty Colonoscopy - IV Sedation (10/22/07) Colonoscopy - IV Sedation (05/03/16) Coronary Artery Bypass [place] (CABG) (01/25/01) EXCISION, ANAL PAPILLA (03/27/05) Extraction of cataract (~2005) Tonsillectomy (~194) Trigger Finger release (~2011) Family History Mother No problems noted. Father Heart disease Carcinoma of prostate Sister Hypercholesterolemia Sister No problems noted. Sister No problems noted. Brother Hypercholesterolemia Social History Smoking/Tobacco Use Status: Former Tobacco Use Smoking risk assessment performed?: Yes Alcohol Intake: current Alcohol Intake frequency: a few times a month Drug use: Never Substance use type: does not use Do you feel safe at home: Yes Do you feel safe in your relationship?: Yes Exam Narrative Exam Narrative: Constitutional: Alert and oriented x3. Appears stated age. Normal body habitus. Head: Normocephalic, no trauma. Eyes: Pupils PERRL, Red reflex noted, EOM's intact. Eyelids symmetrical without lesions, discharge, or swelling. ENT: Bilateral TM's WNL, External ear normal to inspection, no mastoid TTP, swelling, or erythema, Nasal turbinates WNL, no nasal discharge. Normal dentition, Posterior pharynx WNL, no exudate. Chest: RRR, Normal S1, S2, distal pulses intact. Resp: Lungs clear to auscultation bilaterally, no wheezes, rales, or rhonchi. Abdomen: Soft, non-distended, Normoactive bowel sounds all 4 quads. Musculoskeletal: Normal gait, 5/5 strength to all four extremities. Skin: No suspicious rashes or lesions. Capillary refill less than 2 sec. Neurologic: Cranial nerves II-XII intact. Alert and oriented x 3. Motor: No deficits noted. Sensory: Intact bilaterally all 4 extremities. Reflexes: DTR's intact bilaterally.. No pronator drift, no leg drop, no facial droop, dorsiflexion pedal flexion and extension intact bilaterally. Tomato Pulper Operator equal bilaterally. No nystagmus noted on EOMs. Hematologic/Lymphatic: No ecchymosis, no lymphadenopathy. Course Vital Signs Vital signs: Vital Signs Temperature 36.8 C 07/07/22 10:13 Pulse 84 07/07/22 10:13 Respiratory Rate 17 07/07/22 10:13 Blood Pressure 153/90 H 07/07/22 10:13 Pulse Oximetry 98 07/07/22 10:13 Temperature 36.8 C 07/07/22 10:13 Pulse 84 07/07/22 10:13 Respiratory Rate 17 07/07/22 10:13 Blood Pressure 153/90 H 07/07/22 10:13 Pulse Oximetry 98 07/07/22 10:13 Oxygen Delivery Method Room Air 07/07/22 10:13 Oxygen Flow Rate 0 07/07/22 10:13 Pain Level 0 07/07/22 10:13
[2022-07-07] MEDS: Meclizine 25 MG TAB PO (11:02)
[2022-07-07 11:09] VITALS: RESP 17
[2022-07-07 11:20] LABS: Abs Immature Grans 0.04 10^3/uL (0.0-0.06); Absolute Eosinophil Count 0.11 10^3/uL (0.0-0.7); Absolute Lymphocyte Count 2.98 10^3/uL (1.2-3.4); Absolute Monocyte Count 0.83 10^3/uL (0.1-0.8); Basophils % 0.5; HCT 48.5 % (40.0-50.0); HGB 15.9 g/dL (13.5-17.5); Immature Grans % 0.4; Lymphocytes % 26.9; MCH 30.4 pg (27.0-33.0); MCHC 32.8 % (32.0-36.0); MCV 93 fL (80-95); MPV 9.5 fL (8.0-11.0); Monocytes % 7.5; Neutrophils % 63.7; Platelet Count 233 10^3/uL (130-400); RBC 5.23 10^6/uL (4.36-5.78); RDW 12.9 % (11.8-14.1); RDW-SD 43.7 fL; WBC 11.07 10^3/uL (4.4-10.8)
[2022-07-07 11:23] LABS: Absolute Basophil Count 0.06 10^3/uL (0.0-0.2); Absolute Neutrophil Count 7.05 10^3/uL (1.2-6.7)
[2022-07-07 11:26] LABS: ALT 33 U/L (16-63); AST 18 U/L (15-37); Albumin 3.6 g/dL (3.4-5.0); Alkaline Phosphatase 137 U/L (46-116); Anion Gap 7.6 mmol/L (3-11); BUN 22 mg/dL (7-18); Bilirubin, Total 0.6 mg/dL (0.2-1.0); CO2 28.4 mmol/L (21.0-32.0); CREATININE 1.5 mg/dL (0.70-1.30); Calcium 9.6 mg/dL (8.5-10.1); Chloride 108 mmol/L (98-107); Estimated GFR 46.77 (mL/min/1.73m2); Glucose 136 mg/dL (74-106); Magnesium 2.2 mg/dL (1.8-2.4); Potassium 4.2 mmol/L (3.5-5.1); Sodium 144 mmol/L (136-145); Total Protein 8.5 g/dL (6.4-8.2); Troponin I < 50 ng/L (<or=60)
[2022-07-07 11:38] LABS: Bilirubin Negative (Negative); Blood Negative (Negative); Clarity Clear (Clear); Glucose Negative (Negative); Ketones Negative (Negative); Leukocyte Esterase Negative (Negative); Nitrite Negative (Negative); Specific Gravity >= 1.030 (1.005-1.025); Urobilinogen 0.2 mg/dL (Up to 0.2); pH 5.5 (5-8)
[2022-07-07 12:00] LABS: Bacteria Rare HPF (Negative); C & S Indicated? No; Casts Negative LPF (Negative); Crystals Negative HPF (Negative); Epithelial Cells Negative HPF (Negative); Mucus Trace (Negative); Other Cells Negative (Negative); RBC Negative HPF (0-2); WBC 0-2 HPF (0-5)
[2022-07-07] MEDS: Omnipaque 350 MG/ML 500 ML BTL-Imaging package 100 ML IJ (12:08)
[2022-07-07] MEDS: Normal Saline - Diluent 50 ML VIAL IJ (12:10)
[2022-07-07] MEDS: Normal Saline 500 ML IV (12:11)
[2022-07-07 12:49] VITALS: BP 126/73; PULSE 66; RESP 18; TEMP 37; O2SAT 96
== END 2022-07-07 12:54 | disposition home or self-care (01) ==
PROVIDERS: Emergency Provider Registered Nurse Emergency; PCP Family Medicine
DX: E86.0 Dehydration (principal); R42 Dizziness and giddiness; D72.829 Elevated white blood cell count, unspecified; I10 Essential (primary) hypertension; I25.10 Atherosclerotic heart disease of native coronary artery without angina pectoris; Z95.1 Presence of aortocoronary bypass graft
CPT/HCPCS: 36415; 70496; 70498; 80053; 93005; 96360; 99285; 81003; 81015; 83735; 84484; 85025; 93010; 99284

== ENCOUNTER → 2023-07-24 13:21 | Outpatient (CLI) | payer OTHER, SELFPAY ==
--- NOTE | 2023-07-24 11:00 | DI.RAD_ITS ---
Exam(s) XR ANKLE RT COMPLETE EXAM: XR ANKLE RT COMPLETE CLINICAL HISTORY: RT ankle pain M25.571. TECHNIQUE: 2D digital imaging was performed. COMPARISON: No exams were available for comparison FINDINGS: 3 views There is soft tissue swelling laterally but no evidence of fracture or widening of the ankle mortise. Talar dome unremarkable. Small calcific density in the lateral aspect of the joint just medial to the lateral malleolus has more the appearance of an accessory ossicle than a fracture fragment. There are no obvious degenerative changes in the tibiotalar and subtalar joints. Tiny inferior calca julia spur is noted. On the lateral view there is a small 2 millimeter osteophytic density seen off the anterior aspect of the distal tibia just above the plafond level. There is some overlying soft tissue swelling at this level. IMPRESSION: Subtle finding as described above on the lateral view. If clinically indicated further imaging modal ity can be used. DATA REPOSITORY: RADIATION DOSE DELIVERED:
== END ==
PROVIDERS: PCP Family Medicine; Visit Provider Podiatrist
DX: M25.571 Pain in right ankle and joints of right foot (principal)
CPT/HCPCS: 73610

== ENCOUNTER 2023-07-24 18:30 | Outpatient (CLI) | payer OTHER, SELFPAY ==
[2023-07-24 12:27] LABS: HCT 42.7 % (40.0-50.0); HGB 14.2 g/dL (13.5-17.5); MCH 30.5 pg (27.0-33.0); MCHC 33.3 % (32.0-36.0); MCV 92 fL (80-95); MPV 9.4 fL (8.0-11.0); Platelet Count 228 10^3/uL (130-400); RBC 4.66 10^6/uL (4.36-5.78); RDW 13.1 % (11.8-14.1); RDW-SD 44.1 fL; WBC 14.64 10^3/uL (4.4-10.8)
[2023-07-24 12:50] LABS: Absolute Lymphocyte Count 3.51 10^3/uL (1.2-3.4); Absolute Monocyte Count 1.46 10^3/uL (0.1-0.8); Absolute Neutrophil Count 9.66 10^3/uL (1.2-6.7)
[2023-07-24 12:51] LABS: Diff Comment Manual Differential; RBC Morphology Normal
[2023-07-24 12:55] LABS: Uric Acid 5.4 mg/dL (3.5-7.2)
== END 2023-07-24 18:31 | disposition home or self-care (01) ==
LOC: LBO 18:31
PROVIDERS: PCP Family Medicine; Visit Provider Podiatrist
DX: M25.571 Pain in right ankle and joints of right foot (principal); E79.0 Hyperuricemia without signs of inflammatory arthritis and tophaceous disease
CPT/HCPCS: 36415; 84550; 85025

== ENCOUNTER 2024-04-19 11:04 | Outpatient (CLI) | payer OTHER, SELFPAY ==
--- NOTE | 2024-04-19 11:00 | RT.EKG_ITS ---
APPROVED REPORT Exam: Resting ECG Reason for Exam: baseline Patient Location: O HR:76 bpm ECG Measurements Heart Rate 76 AXIS NM 183 P 62 QRSd 96 QRS 58 QT 390 T 34 QTc 439 Conclusion Sinus rhythm...normal P axis, V-rate 50- 99 Normal Electrocardiogram
== END 2024-04-19 11:05 | disposition home or self-care (01) ==
LOC: DI.CARD 11:05
PROVIDERS: PCP Family Medicine; Visit Provider Internal Medicine Cardiovascular Disease
DX: I25.10 Atherosclerotic heart disease of native coronary artery without angina pectoris (principal)
CPT/HCPCS: 93010

== ENCOUNTER 2024-09-30 14:14 | Outpatient (CLI) | payer OTHER, SELFPAY ==
[2024-09-30 10:23] LABS: ALT 28 U/L (16-63); AST 16 U/L (15-37); Albumin 3.4 g/dL (3.4-5.0); Alkaline Phosphatase 133 U/L (46-116); Anion Gap 8.1 mmol/L (3-11); BUN 23 mg/dL (7-18); Bilirubin, Total 0.5 mg/dL (0.2-1.0); CO2 24.9 mmol/L (21.0-32.0); Calcium 9.0 mg/dL (8.5-10.1); Calculated LDL 70 mg/dL (<100); Chloride 109 mmol/L (98-107); Cholesterol 139 mg/dL (<200); Estimated GFR 54.85 (mL/min/1.73m2); Glucose 94 mg/dL (74-106); HDL Cholesterol 38 mg/dL (>or=40); Potassium 4.5 mmol/L (3.5-5.1); Sodium 142 mmol/L (136-145); Total Protein 8.3 g/dL (6.4-8.2); Triglyceride 159 mg/dL (<150)
== END 2024-09-30 14:15 | disposition home or self-care (01) ==
LOC: LBO 14:16
PROVIDERS: PCP Family Medicine; Visit Provider Family Medicine
DX: I10 Essential (primary) hypertension (principal); I25.810 Atherosclerosis of coronary artery bypass graft(s) without angina pectoris
CPT/HCPCS: 36415; 80053; 80061